=== PATIENT | female | born 1945 | race Two or more races ===

== ENCOUNTER 2019-02-20 09:16 | Inpatient (IN) | payer MEDICAID ==
[~2019-02-20] VITALS: Ht 165.1 cm; Wt 74.0 kg
[~2019-02-20 09:16] MED LIST: BENA5TAB5 PO; CALC-312 PO; GLIP-218 PO; METF-372 PO; PRAV20TA3 PO; SITA100T7 PO
[2019-02-20 09:56] LABS: Basophils # (auto) 0 uL; Basophils % (auto) 0.6 % (0.0-2.0); Eosinophils # (auto) 0.3 uL; Eosinophils % (auto) 4.4 % (0.0-7.0); Hematocrit 39.4 % (36.0-46.0); Hemoglobin 12.9 g/dL (12.2-16.2); Lymphocytes # (auto) 2.4 uL; Lymphocytes % (auto) 32.1 % (10.0-50.0); Mean Corpuscular Hemoglobin 32.3 pg (28.0-32.0); Mean Corpuscular Hgb Conc. 32.7 g/dL (32.0-36.0); Mean Corpuscular Volume 98.8 fL (80.0-100.0); Monocytes # (auto) 0.5 uL; Neutrophils # (auto) 4.2 uL; Neutrophils % (auto) 55.9 % (37.0-80.0); Platelet Count (auto) 175 10^3/uL (140-450); Red Blood Cells 3.99 10^6/uL (4.0-5.20); Red Cell Distribution Width 13.2 % (11.8-14.3); White Blood Cell 7.6 10^3/uL (4.4-10.8)
[2019-02-20 10:02] LABS: Anion Gap 22 (5-15); BUN/Creatinine Ratio 16.5; Blood Urea Nitrogen 20 mg/dL (7-18); Carbon Dioxide 10 mmol/L (21-32); Chloride 109 mmol/L (98-107); GFR African American 56 mL/min; GFR Non-African American 46 mL/min; Potassium 4.1 mmol/L (3.5-5.1); Sodium 141 mmol/L (136-145)
[2019-02-20 10:06] LABS: Alanine Aminotransferase 28 U/L (13-56); Alkaline Phosphatase 61 U/L (45-117); Aspartate Aminotransferase 20 U/L (15-37); Bilirubin, Total 0.5 mg/dL (0.2-1.0); Total Protein 7.9 g/dL (6.4-8.2)
[2019-02-20 11:25] LABS: Glucose 194 mg/dL (74-106)
[2019-02-20 11:28] LABS: Calcium 9.5 mg/dL (8.5-10.1)
[2019-02-20] MEDS ORDERED: ASPirin 81 mg TAB PO ONE (11:30)
[2019-02-20] MEDS ORDERED: NITROGLYCERIN 0.4 MG SL TAB SL ONE (11:30)
[2019-02-20] MEDS ORDERED: ACETAMINOPHEN 500 MG TAB PO PRN (13:45)
[2019-02-20] MEDS ORDERED: MORPHINE SULF INJ 2 MG/ML SYRINGE 1ML IV PRN ×2 (13:45)
[2019-02-20] MEDS ORDERED: HYDROcodone-ACET 5/325MG TAB PO PRN (13:45)
[2019-02-20] MEDS ORDERED: DEXTROSE (50%) 50ML SYRG IV PRN (13:45)
[2019-02-20] MEDS ORDERED: ONDANSETRON HCL 4 MG/2 ML VIAL IV PRN (13:45)
[2019-02-20] MEDS ORDERED: hydrALAZINE HCL 20 MG/ML VL IV PRN (13:45)
[2019-02-20] MEDS ORDERED: NITROGLYCERIN 0.4 MG SL TAB SL PRN (13:45)
[2019-02-20] MEDS: cefTRIAXone 1GM/50ML D5W 50 ML IV SCH (14:35)
[2019-02-20] MEDS: SODIUM CHLORIDE 0.9% 1,000 ML IV SCH (14:35)
[2019-02-20] MEDS: ACCU-CHEK COMFORT CURVE STRIP VI SCH ×2 (17:39→21:46)
[2019-02-20] MEDS: InsuLIN REG 1unit/0.01ml Soln (100units/ml) SC SCH ×2 (17:59→21:52)
[2019-02-20 18:16] LABS: Urine Bacteria MOD /hpf (None Seen); Urine Blood Negative /uL (Negative); Urine Mucus FEW (None Seen); Urine Specific Gravity 1.006 (1.001-1.035); Urine WBC 6 /hpf (0 - 5)
--- NOTE | 2019-02-20 19:20 | NUR ---
TELE ADMIT FROM ER RECEIVED PATIENT VIA GURNEY FROM ER. PATIENT RESTING COMFORTABLY IN BED WITH FAMILY MEMBER AT BEDSIDE. NO S/S OF DISTRESS OR SOB, NO PAIN NOTED OR REPORTED AT THIS TIME. PATIENT A/O X4, AMBULATORY. UPDATED PATIENT ON POC, VERBALIZED UNDERSTANDING. BED LOCKED IN LOW POSITION, CALL LIGHT WITHIN REACH, WILL CONTINUE TO MONITOR PATIENT Q1HR AND PRN.
[2019-02-20] MEDS: GABAPENTIN 100 MG CAP PO SCH (21:43)
[2019-02-20] MEDS: ATORVASTATIN 20 MG TAB PO SCH (21:44)
[2019-02-20] MEDS: METOPROLOL TARTRATE 25 MG TAB PO SCH (21:45)
[2019-02-20 22:21] VITALS: BP 155/59
[2019-02-21] VITALS (7 sets, daily range): BP systolic 114–151; BP diastolic 40–77
[2019-02-21] MEDS ORDERED: GLIP-116 PO (01:07)
[2019-02-21] MEDS ORDERED: CHOL20007 PO (01:07)
[2019-02-21] MEDS ORDERED: ALEN1TAB32 PO (01:07)
[2019-02-21] MEDS ORDERED: ACET500C8 PO (01:07)
[2019-02-21] MEDS: SODIUM CHLORIDE 0.9% 1,000 ML IV SCH ×2 (03:05→16:25)
--- NOTE | 2019-02-21 05:49 | NUR ---
IV insertion IV access obtained, via clean technique by inserting 22 gauge catheter at Right FA after 1 attempt. IV secured properly. No trauma to site. Patient tolerated procedure well
[2019-02-21 06:14] LABS: Basophils # (auto) 0.1 uL; Basophils % (auto) 0.8 % (0.0-2.0); Eosinophils # (auto) 0.4 uL; Eosinophils % (auto) 6.1 % (0.0-7.0); Hematocrit 37.3 % (36.0-46.0); Hemoglobin 12.4 g/dL (12.2-16.2); Lymphocytes # (auto) 2.5 uL; Lymphocytes % (auto) 34.7 % (10.0-50.0); Mean Corpuscular Hemoglobin 32.6 pg (28.0-32.0); Mean Corpuscular Hgb Conc. 33.2 g/dL (32.0-36.0); Mean Corpuscular Volume 98.4 fL (80.0-100.0); Monocytes # (auto) 0.5 uL; Monocytes % (auto) 7.7 % (0.0-12.0); Neutrophils # (auto) 3.6 uL; Neutrophils % (auto) 50.7 % (37.0-80.0); Platelet Count (auto) 169 10^3/uL (140-450); Red Blood Cells 3.79 10^6/uL (4.0-5.20); Red Cell Distribution Width 13.1 % (11.8-14.3); White Blood Cell 7.2 10^3/uL (4.4-10.8)
[2019-02-21 06:25] LABS: INR 1.03 (0.9-1.15); Partial Thromboplastin Time 25.6 sec (23.64-32.05)
[2019-02-21] MEDS: InsuLIN REG 1unit/0.01ml Soln (100units/ml) SC SCH ×4 (06:28→22:15)
[2019-02-21] MEDS: ACCU-CHEK COMFORT CURVE STRIP VI SCH ×4 (06:28→22:01)
[2019-02-21 06:34] LABS: BUN/Creatinine Ratio 19.2; Calcium 8.3 mg/dL (8.5-10.1); Potassium 4.1 mmol/L (3.5-5.1)
--- NOTE | 2019-02-21 07:25 | NUR ---
OPENING SHIFT NOTE ASSUMED CARE OF PATIENT FROM ELECTRONIC VIDEO GAMES SERVICER RN AVA. PATIENT IS AWAKE AND ALERT X4. PATIENT HAS NO S/S OF DISTRESS/SOB OR PAIN. INSTRUCTED PATIENT ON POC, PATIENT VERBALIZED UNDERSTANDING. BED IS IN LOWEST POSITION WITH SIDE RAILS RAISED X2, BED WHEELS LOCKED, LADD IS HANGING BELOW BLADDER AND IS DRAINING YELLOW URINE, AND CALL LIGHT IS WITHIN REACH. WILL CONTINUE TO MONITOR.
[2019-02-21] MEDS ORDERED: ADENOSINE 63 MG in GIVE UN-DILUTED 0 ML IV STA (08:27)
[2019-02-21] MEDS: cefTRIAXone 1GM/50ML D5W 50 ML IV SCH (09:35)
[2019-02-21] MEDS: METOPROLOL TARTRATE 25 MG TAB PO SCH ×2 (10:00→21:26)
[2019-02-21] MEDS: LISINOPRIL 10 MG TAB PO SCH (10:00)
--- NOTE | 2019-02-21 10:00 | NUR ---
PATIENT TAKEN DOWN FOR STRESS TEST VIA WHEELCHAIR. PATIENT HAS NO S/S OF DISTRESS/SOB OR PAIN AT THIS TIME.
--- NOTE | 2019-02-21 12:07 | NUR ---
SPOKE WITH DR. IRVIGN CULP MD ON PATIENT'S STATUS, INFORMED HIM PATIENT IS HAVING STRESS TEST DONE AT THIS TIME, MD IS AWARE. PER MD HE DOES NOT WANT THE PATIENT DISCHARGED DUE TO ABNORMAL ARTERIAL ULTRASOUND. HE WILL BE IN TOMORROW TO SEE PATIENT.
--- NOTE | 2019-02-21 12:11 | NUR ---
PATIENT BACK FROM STRESS LAB. PATIENT HAS NO S/S OF DISTRESS/SOB OR PAIN AT THIS TIME. WILL CONTINUE TO MONITOR.
--- NOTE | 2019-02-21 12:33 | NUR ---
MD YADAV AT BEDSIDE. UPDATED MD ON PATIENT'S STATUS. PER MD D/C WILBERTO AND ORDER CCHO DIET FOR PATIENT. WILL FOLLOW THROUGH WITH ORDERS.
[2019-02-21] MEDS: FAMOTIDINE 20 MG TAB PO SCH (12:56)
[2019-02-21] MEDS: GABAPENTIN 100 MG CAP PO SCH ×2 (12:56→22:01)
[2019-02-21] MEDS: ASPirin-EC 81 mg tab PO SCH (12:57)
--- NOTE | 2019-02-21 16:54 | NUR ---
Jimenez catheter dc'd Order to discontinue jimenez catheter. Jimenez dc'd with clean technique following deflation of the balloon. Patient tolerated well with no complaints of pain. Will continue to monitor. Signed: 02/21/19 at 1704 by SN JOÃO <Co-Signature Required> Co-Signed: 02/21/19 at 1704 by Nayely Salazar RN RN
--- NOTE | 2019-02-21 19:12 | NUR ---
CLOSING SHIFT NOTE ENDORSE CARE TO QUALITY CONTROL TECH RN KARLEY. INFORMED RN PATIENT'S HAS NOT VOIDED SINCE LADD WAS REMOVED AND MD DO WANTS LADD TO BE REINSERTED IF PATIENT HAS URINARY RETENTIONS. RN IS AWARE. PATIENT HAS NO S/S OF DISTRESS/SOB OR PAIN AT THIS TIME.
--- NOTE | 2019-02-21 19:31 | NUR ---
OPENING NOTES RECEIVED REPORT FROM DAY SHIFT NURSE. PT IS ALERT AND ORIENTATED X 4 WITH NO S/S OF DISTRESS NOR PAIN. NO S/S OF SOB. PT CLAIMS TO HAVE NO CHEST PAIN AT THIS MOMENT. FAMILY IS AT BEDSIDE. PT URINATED 200ML OF URINE. BED BRAKES ARE LOCKED AND BED IS IN LOWEST POSITION. SIDE RAILS ARE UP X 2 AND CALL LIGHT IS WITH IN REACH. BED ALARM IS ARMED AND HOB IS 30 DEGREES. WILL MONITOR Q 1 HR.
[2019-02-21] MEDS: ATORVASTATIN 20 MG TAB PO SCH (22:01)
[2019-02-22 05:00] VITALS: BP 113/59
[2019-02-22] MEDS: SODIUM CHLORIDE 0.9% 1,000 ML IV SCH ×2 (06:30→17:59)
[2019-02-22] MEDS: ACCU-CHEK COMFORT CURVE STRIP VI SCH ×4 (06:35→22:17)
[2019-02-22] MEDS: InsuLIN REG 1unit/0.01ml Soln (100units/ml) SC SCH ×4 (06:36→22:00)
--- NOTE | 2019-02-22 07:32 | NUR ---
CLOSING NOTES ENDORSED CARE TO DAY SHIFT NURSE SUSAN.
--- NOTE | 2019-02-22 08:00 | NUR ---
Opening Shift Note Assumed care of patient, awake and alert. No S/S of distress/SOB or pain. Instructed on POC and to call for assist PRN, will continue to monitor for changes Q1hr and PRN.
[2019-02-22 09:00] VITALS: BP 125/56
[2019-02-22] MEDS: GABAPENTIN 100 MG CAP PO SCH ×2 (09:43→22:17)
[2019-02-22] MEDS: cefTRIAXone 1GM/50ML D5W 50 ML IV SCH (09:43)
[2019-02-22] MEDS: LISINOPRIL 10 MG TAB PO SCH (09:45)
[2019-02-22] MEDS: FAMOTIDINE 20 MG TAB PO SCH (09:45)
[2019-02-22] MEDS: METOPROLOL TARTRATE 25 MG TAB PO SCH ×2 (09:45→22:17)
[2019-02-22] MEDS: ASPirin-EC 81 mg tab PO SCH (09:46)
[2019-02-22 13:00] VITALS: BP 153/74
--- NOTE | 2019-02-22 14:00 | NUR ---
IV removal IV noted to be infiltrated on left forearm and right forearm. IV DC'd with clean sterile technique, catheter fully intact. Pressure dressing applied to site. Patient tolerated well.
--- NOTE | 2019-02-22 16:00 | NUR ---
IV insertion IV access obtained, via clean sterile technique by inserting 20 gauge catheter at left antecubital after one attempt. IV secured properly. No trauma to site. Patient tolerated well.
[2019-02-22 17:00] VITALS: BP 128/73
--- NOTE | 2019-02-22 17:00 | NUR ---
Patient is for bilateral peripheral angiogram and possible intervention tomorrow 02/23/19 at 1300 to be performed by Dr. Sandoval. Consents to be signed by daughter Cindy, she will come tomorrow AM.
--- NOTE | 2019-02-22 19:21 | NUR ---
OPENING NOTES RECEIVED REPORT FROM DAY SHIFT NURSE. PT IS ALERT AND ORIENTATED X 4 WITH NO S/S OF DISTRESS NOR PAIN. NO S/S OF SOB. PT CLAIMS TO HAVE NO CHEST PAIN AT THIS MOMENT. PT WILL BE NPO AFTER MIDNIGHT. THIS WAS DISCUSSED WITH PT AND PT VERBALIZED UNDERSTANDING. BED BRAKES ARE LOCKED AND BED IS IN LOWEST POSITION. SIDE RAILS ARE UP X 2 AND CALL LIGHT IS WITH IN REACH. BED ALARM IS ARMED AND HOB IS 30 DEGREES. WILL MONITOR Q 1 HR.
[2019-02-22 20:00] VITALS: BP 125/56
[2019-02-22 21:30] VITALS: BP 144/91
[2019-02-22] MEDS: ATORVASTATIN 20 MG TAB PO SCH (22:17)
[2019-02-23] MEDS: SODIUM CHLORIDE 0.9% 1,000 ML IV SCH ×4 (02:35→21:41)
[2019-02-23 05:00] VITALS: BP 109/51
[2019-02-23] MEDS: InsuLIN REG 1unit/0.01ml Soln (100units/ml) SC SCH ×4 (06:25→21:42)
[2019-02-23] MEDS: ACCU-CHEK COMFORT CURVE STRIP VI SCH ×4 (06:25→21:42)
--- NOTE | 2019-02-23 07:28 | NUR ---
CLOSING NOTES ENDORSED CARE TO DAY SHIFT NURSESUSAN.
[2019-02-23] MEDS: cefTRIAXone 1GM/50ML D5W 50 ML IV SCH (08:43)
[2019-02-23 09:00] VITALS: BP 147/66
[2019-02-23] MEDS: GABAPENTIN 100 MG CAP PO SCH ×2 (10:00→21:42)
[2019-02-23] MEDS: METOPROLOL TARTRATE 25 MG TAB PO SCH ×2 (10:00→21:42)
[2019-02-23] MEDS: FAMOTIDINE 20 MG TAB PO SCH (10:00)
[2019-02-23] MEDS: ASPirin-EC 81 mg tab PO SCH ×2 (10:00→18:49)
--- NOTE | 2019-02-23 10:50 | NUR ---
Patient brought to Substation Maintenance Technician via bed for Bilateral peripheral angiogram and possible intervention to be performed by Dr. Sandoval. Gave reports to Blu NAGY.
[2019-02-23] MEDS ORDERED: IODIXANOL 320MG/ML 100ML BTL IV ONE (11:47)
[2019-02-23] MEDS ORDERED: LIDOCAINE 2%HCL (LOCAL ANESTH.) INJ 20ML MDV ONE (11:47)
[2019-02-23] MEDS ORDERED: fentaNYL CITRATE 100 MCG/2 ML VL ONE (12:01)
[2019-02-23] MEDS ORDERED: ANGIOMAX 250 MG VIAL IV ONE (12:01)
[2019-02-23] MEDS ORDERED: MIDAZOLAM HCL 1MG/1ML-2 ML VIAL ONE (12:02)
[2019-02-23] MEDS ORDERED: SODIUM CHL 0.9% 50 ML ONE (12:02)
[2019-02-23] MEDS ORDERED: CLOPIDOGREL BISULFATE 75 MG TAB ONE (13:01)
--- NOTE | 2019-02-23 14:05 | NUR ---
Received reports from Parole Officer RN, patient back to her room via bed, S/P bilateral peripheral angiogram performed by Dr. Sandoval. Patient is awake, oriented and not in respiratory distress. Maintained flat on bed for 1 more hour. Bed alarm on and side rails up x2. Will continue to monitor.
--- NOTE | 2019-02-23 14:39 | NUR ---
Nutrition Assessment Notes please see attached link for complete assessment Est. Needs BW [id number] kcal (23-25 kcal/kgBW), 71-78 gms pro (1.0-1.1 gms/kgBW). Will continue to monitor pertinent labs and reassess nutrient need prn Addendum: 02/23/19 at [address] Amended: Links added.
[2019-02-23 16:41] VITALS: BP 136/72
[2019-02-23] MEDS: LISINOPRIL 10 MG TAB PO SCH (18:49)
[2019-02-23] MEDS: ATORVASTATIN 20 MG TAB PO SCH (21:41)
[2019-02-23 22:00] VITALS: BP 130/66
[2019-02-24 05:00] VITALS: BP 99/52
[2019-02-24] MEDS: SODIUM CHLORIDE 0.9% 1,000 ML IV SCH ×3 (05:34→17:37)
[2019-02-24] MEDS: InsuLIN REG 1unit/0.01ml Soln (100units/ml) SC SCH ×4 (06:10→21:52)
[2019-02-24] MEDS: ACCU-CHEK COMFORT CURVE STRIP VI SCH ×4 (06:11→21:52)
[2019-02-24 06:20] LABS: Basophils # (auto) 0 uL; Basophils % (auto) 0.6 % (0.0-2.0); Eosinophils # (auto) 0.3 uL; Eosinophils % (auto) 4.1 % (0.0-7.0); Hematocrit 37.1 % (36.0-46.0); Hemoglobin 12.5 g/dL (12.2-16.2); Lymphocytes # (auto) 2.6 uL; Lymphocytes % (auto) 37.1 % (10.0-50.0); Mean Corpuscular Hemoglobin 33.3 pg (28.0-32.0); Mean Corpuscular Hgb Conc. 33.6 g/dL (32.0-36.0); Monocytes # (auto) 0.5 uL; Monocytes % (auto) 7.2 % (0.0-12.0); Neutrophils # (auto) 3.6 uL; Nucleated Red Blood Cells % 0.1 %; Platelet Count (auto) 165 10^3/uL (140-450); Red Blood Cells 3.75 10^6/uL (4.0-5.20); Red Cell Distribution Width 13.4 % (11.8-14.3)
[2019-02-24 06:35] LABS: Potassium 4.7 mmol/L (3.5-5.1)
[2019-02-24 06:42] LABS: BUN/Creatinine Ratio 22.8; Calcium 8.6 mg/dL (8.5-10.1)
--- NOTE | 2019-02-24 07:20 | NUR ---
Opening Shift Note Assumed care of patient, awake and alert, sitting up in bed talking on the phone. No S/S of distress/SOB, no pain noted or reported at this time. Respirations are even and unlabored. Updated on POC and instructed to call for assist as needed, pt. verbalized understanding. Bed locked in lowest position, side rails up x2, call light within reach. Will continue to monitor for changes Q1hr and PRN.
[2019-02-24 09:00] VITALS: BP 126/60
[2019-02-24] MEDS: cefTRIAXone 1GM/50ML D5W 50 ML IV SCH (09:15)
[2019-02-24] MEDS: METOPROLOL TARTRATE 25 MG TAB PO SCH ×2 (10:00→21:53)
[2019-02-24] MEDS: FAMOTIDINE 20 MG TAB PO SCH (10:31)
[2019-02-24] MEDS: ASPirin-EC 81 mg tab PO SCH (10:31)
[2019-02-24] MEDS: GABAPENTIN 100 MG CAP PO SCH ×2 (10:32→21:51)
[2019-02-24] MEDS: CLOPIDOGREL BISULFATE 75 MG TAB PO SCH (10:32)
[2019-02-24] MEDS: LISINOPRIL 10 MG TAB PO SCH (10:33)
[2019-02-24 13:00] VITALS: BP 127/67
[2019-02-24 13:11] LABS: Cholesterol 114 mg/dL (< 200); HDL Cholesterol 36 mg/dL (40-59); LDL Cholesterol 69 mg/dL (< 100); Triglycerides 90 mg/dL (< 150)
[2019-02-24] MEDS ORDERED: POLYETHYLENE GLYCOL 17 GM PWDR PO ONE (17:45)
[2019-02-24 17:51] VITALS: BP 142/73
--- NOTE | 2019-02-24 19:40 | NUR ---
Opening Shift Note Assumed care of patient, awake and alert, resting in bed. No S/S of distress or SOB, no pain noted or reported at this time. Respirations are even and unlabored. Updated pt. on POC and instructed to call for assistance as needed, Pt. verbalized understanding. Bed locked in lowest position, side rails up x2, call light within reach, sitter at bedside for safety.
[2019-02-24] MEDS: ATORVASTATIN 20 MG TAB PO SCH (21:51)
[2019-02-24 22:00] VITALS: BP 134/79
--- NOTE | 2019-02-24 23:00 | NUR ---
IV removal IV DC'd with clean sterile technique, catheter fully intact. Pressure dressing applied to site. Patient tolerated well.
--- NOTE | 2019-02-24 23:18 | NUR ---
IV insertion IV access obtained, via clean sterile technique by inserting 22 gauge catheter at right hand after 2 attempt. IV secured properly. No trauma to site. Patient tolerated well.
[2019-02-25] MEDS: SODIUM CHLORIDE 0.9% 1,000 ML IV SCH ×3 (00:33→13:01)
[2019-02-25 05:00] VITALS: BP 142/48
[2019-02-25] MEDS: ACCU-CHEK COMFORT CURVE STRIP VI SCH ×2 (06:15→11:34)
[2019-02-25] MEDS: InsuLIN REG 1unit/0.01ml Soln (100units/ml) SC SCH ×2 (06:15→11:34)
--- NOTE | 2019-02-25 07:30 | NUR ---
Opening Shift Note Assumed care of patient, awake and alert, sitting up eating breakfast. No S/S of distress/SOB, no pain noted or reported at this time. Respirations are even and unlabored. Updated on POC and instructed to call for assist as needed, pt. verbalized understanding. Bed locked in lowest position, side rails up x2, call light within reach. Will continue to monitor for changes Q1hr and PRN.
[2019-02-25 08:29] VITALS: BP 114/46
[2019-02-25] MEDS: FAMOTIDINE 20 MG TAB PO SCH (09:01)
[2019-02-25] MEDS: CLOPIDOGREL BISULFATE 75 MG TAB PO SCH (09:02)
[2019-02-25] MEDS: GABAPENTIN 100 MG CAP PO SCH (09:02)
[2019-02-25] MEDS: ASPirin-EC 81 mg tab PO SCH (09:02)
[2019-02-25] MEDS: cefTRIAXone 1GM/50ML D5W 50 ML IV SCH (09:03)
[2019-02-25] MEDS: METOPROLOL TARTRATE 25 MG TAB PO SCH (09:03)
[2019-02-25] MEDS: LISINOPRIL 10 MG TAB PO SCH (09:04)
[2019-02-25 12:47] VITALS: BP 143/68
[2019-02-25 14:37] VITALS: BP 143/68
--- NOTE | 2019-02-25 15:50 | NUR ---
Discharge instructions given as ordered. Encourage to follow up with PCP and Subsea Engineer as instructed. All questions and concerns addressed. Patient verbalized understanding. Medication reconciliation form completed and copy given to patient. IV removed with catheter intact, pressure dressing applied. Telemetry unit returned to [facility]. Patient taken to vehicle via wheelchair with all personal belongings, accompanied by staff and family member. No distress noted at time of departure.
== END 2019-02-25 15:50 | disposition home or self-care (01) | DRG 181 ==
LOC: ER 09:20 → TELE 09:21 → TELE-WESTW 19:30
PROVIDERS: ADMIT Nurse Practitioner Acute Care; ATTEND Internal Medicine Nephrology
PROC: 047K3ZZ Dilation of Right Femoral Artery, Percutaneous Approach (ICD-10-PCS; principal; 2019-02-23)
PROC: B41G1ZZ Fluoroscopy of Left Lower Extremity Arteries using Low Osmolar Contrast (ICD-10-PCS; 2019-02-23)
PROC: B41F1ZZ Fluoroscopy of Right Lower Extremity Arteries using Low Osmolar Contrast (ICD-10-PCS; 2019-02-23)
DX: E11.51 Type 2 diabetes mellitus with diabetic peripheral angiopathy without gangrene (principal); E11.22 Type 2 diabetes mellitus with diabetic chronic kidney disease; I24.9 Acute ischemic heart disease, unspecified; N18.3 Chronic kidney disease, stage 3 (moderate); R33.9 Retention of urine, unspecified; I12.9 Hypertensive chronic kidney disease with stage 1 through stage 4 chronic kidney disease, or unspecified chronic kidney disease; M81.0 Age-related osteoporosis without current pathological fracture; E78.5 Hyperlipidemia, unspecified; N13.2 Hydronephrosis with renal and ureteral calculous obstruction; E66.9 Obesity, unspecified; Z79.84 Long term (current) use of oral hypoglycemic drugs; Z83.3 Family history of diabetes mellitus; Z87.440 Personal history of urinary (tract) infections
CPT/HCPCS: 36415; 51702; 71045; 74176; 78452; 80048; 80053; 80061; 81001; 82962; 83036; 83605; 84484; 85025; 85610; 85730; 86141; 87086; 93005; 93017; 93306; 93926; 94761; 96361; 96365; 97116; 97530; 99152; G0378; J0153; J0696; J1815; J2250; J2405; Q9967

== ENCOUNTER 2022-04-19 20:43 | Emergency (ER) | payer MEDICAID ==
[~2022-04-19] VITALS: Ht 165.1 cm; Wt 67.0 kg
[~2022-04-19 20:43] MED LIST changes: +ACET500C8 PO; +ALEN70TA74 PO; -BENA5TAB5 PO; -CALC-312 PO; +CHOL20007 PO; -GLIP-218 PO; +GLIP10TA9 PO; -PRAV20TA3 PO; -SITA100T7 PO
[2022-04-19 21:43] VITALS: BP 140/52
== END 2022-04-20 03:32 | disposition left against medical advice (07) ==
LOC: ER 20:48
DX: M79.631 Pain in right forearm (principal); Z53.21 Procedure and treatment not carried out due to patient leaving prior to being seen by health care provider; W18.39XA Other fall on same level, initial encounter; Y93.89 Activity, other specified; Y92.89 Other specified places as the place of occurrence of the external cause; Y99.8 Other external cause status
CPT/HCPCS: 73100; 73120

== ENCOUNTER 2023-01-14 16:56 | Emergency (ER) | payer MEDICAID ==
[~2023-01-14] VITALS: Ht 152.4 cm; Wt 63.3 kg
[2023-01-14 18:48] VITALS: BP 167/65
[2023-01-14 20:05] LABS: Basophils # (auto) 0.1 10 ^3/uL (0-0.2); Basophils % (auto) 0.8 % (0.0-2.0); Eosinophils # (auto) 0.2 10 ^3/uL (0-0.8); Eosinophils % (auto) 2.2 % (0.0-7.0); Hematocrit 37.5 % (36.0-46.0); Hemoglobin 12.8 g/dL (12.2-16.2); Lymphocytes # (auto) 3.1 10 ^3/uL (0.4-5.4); Lymphocytes % (auto) 39.8 % (10.0-50.0); Mean Corpuscular Hemoglobin 32.9 pg (28.0-32.0); Mean Corpuscular Volume 96.5 fL (80.0-100.0); Monocytes # (auto) 0.7 10 ^3/uL (0-1.3); Monocytes % (auto) 8.9 % (0.0-12.0); Neutrophils # (auto) 3.7 10 ^3/uL (1.6-8.6); Neutrophils % (auto) 48.3 % (37.0-80.0); Nucleated Red Blood Cells % 0.1 %; Red Blood Cells 3.89 10^6/uL (4.0-5.20); Red Cell Distribution Width 12.8 % (11.8-14.3); White Blood Cell 7.7 10^3/uL (4.4-10.8)
[2023-01-14 20:31] LABS: Albumin 3.2 g/dL (3.4-5.0); BUN/Creatinine Ratio 18.9 (10.0-20.0); Calcium 9.3 mg/dL (8.5-10.1); Potassium 4.8 mmol/L (3.5-5.1)
[2023-01-14 20:33] LABS: Bilirubin, Total 0.2 mg/dL (0.2-1.0); Total Protein 8.2 g/dL (6.4-8.2)
[2023-01-14] MEDS ORDERED: CLINDAMYCIN HCL 150 MG CAP PO ONE (21:15)
[2023-01-14] MEDS ORDERED: CLIN300C70 PO (21:15)
== END 2023-01-14 21:24 | disposition home or self-care (01) ==
LOC: ER 16:56
DX: L03.116 Cellulitis of left lower limb (principal); E87.1 Hypo-osmolality and hyponatremia; E11.65 Type 2 diabetes mellitus with hyperglycemia; E78.5 Hyperlipidemia, unspecified; E11.22 Type 2 diabetes mellitus with diabetic chronic kidney disease; I12.9 Hypertensive chronic kidney disease with stage 1 through stage 4 chronic kidney disease, or unspecified chronic kidney disease; N18.9 Chronic kidney disease, unspecified
CPT/HCPCS: 36415; 80053; 85025

== ENCOUNTER 2024-08-22 14:51 | Inpatient (IN) | payer MEDICAID ==
[~2024-08-22] VITALS: Ht 157.5 cm; Wt 71.8 kg
[~2024-08-22 14:51] MED LIST changes: +CLIN1CAP70 PO
--- NOTE | 2024-08-22 15:33 | DVH ---
CHEST RADIOGRAPH Indication: ALOC Technique: Single frontal view of the chest was obtained COMPARISON: None FINDINGS: Lines and Tubes: None Lungs: Clear Pleura: No effusion. No pneumothorax. Cardiomediastinal contours: Unremarkable Bones: Unremarkable IMPRESSION: 1. No acute disease.
[2024-08-22 15:39] LABS: Basophils # (auto) 0 10 ^3/uL (0-0.2); Basophils % (auto) 0.2 % (0.0-2.0); Eosinophils # (auto) 0 10 ^3/uL (0-0.8); Hematocrit 37.4 % (36.0-46.0); Hemoglobin 12.4 g/dL (12.2-16.2); Lymphocytes # (auto) 0.9 10 ^3/uL (0.4-5.4); Lymphocytes % (auto) 9.6 % (10.0-50.0); Mean Corpuscular Hgb Conc. 33.1 g/dL (32.0-36.0); Mean Corpuscular Volume 96.9 fL (80.0-100.0); Monocytes # (auto) 0.2 10 ^3/uL (0-1.3); Monocytes % (auto) 1.9 % (0.0-12.0); Neutrophils % (auto) 88.3 % (37.0-80.0); Platelet Count (auto) 184 10^3/uL (140-450); Red Blood Cells 3.86 10^6/uL (4.0-5.20); Red Cell Distribution Width 13.1 % (11.8-14.3); White Blood Cell 9.1 10^3/uL (4.4-10.8)
--- NOTE | 2024-08-22 15:43 | DVH ---
Exam: CT HEAD WITHOUT CONTRAST History: ALOC Technique: [address] images through the posterior fossa and the supratentorial compart ment were acquired without contrast and imaged using soft tissue and bone algorithms. RADIATION DOSE: DLP 971.1 mGy.cm; CTDI vol 53.76 mGy. Comparison: None Findings: There is no evidence of an intracranial hemorrhage, acute large vessel infarct, mass effect, or midli ne shift. Marked calcification of the carotid siphons. The calvarium, orbits, paranasal sinuses, sella, middle ears, and mastoids are unremarkable. The superficial soft tissues are within normal limits. Impression: 1. No acute intracranial abnormality.
--- NOTE | 2024-08-22 15:51 | ED.PDOC ---
Altered Mental Status HPI Comments 78Y F with PMHx DM, HTN, HLD, DVT, and CKD presents to ED for chief complaint ALOC x1hr. Per daughter, pt was last seen normal 1hour ago where pt was A&Ox4 and verbal. Upon ED arrival, pt only opens eyes to verbal stimuli and is experiencing chills, bilateral leg pain, nausea, vomiting, and weakness. Per daughter, BP was elevated at home yesterday. No other history provided. No other symptoms reported. Chief Complaint: ALOC Time Seen by MD: 15:29 Primary Care Provider: ERIKA PENALOZA Reviewed Notes: Nurses Notes, Medications, Allergies Allergies: Coded Allergies: NO KNOWN ALLERGIES (Unverified , 07/28/13) Home Meds Active Scripts Clindamycin Hcl (Clindamycin Hcl) 300 Mg Cap, 1 CAP PO TID for 10 Days, #21 CAP 0 Refills Prov:TIAGO FLOOD 01/14/23 Reported Medications Cholecalciferol (VITAMIN D3) 2,000 Unit Tab, 1 TAB PO DAILY, #30 TAB 5 Refills 02/21/19 Alendronate Sodium (Alendronate Sodium) 70 Mg Tab, 1 TAB PO QWEEKLY, #4 TAB 3 Refills 02/21/19 Acetaminophen (Mapap) 500 Mg Cap, 500 MG PO Q6HR, CAP 02/21/19 Glipizide (Glipizide) 10 Mg Tab, 1 TAB PO DAILY, #60 TAB 5 Refills 02/21/19 Metformin Hydrochloride (Metformin Hcl) 1,000 Mg Tab, 1000 MG PO, TAB 07/28/13 Information Source: Patient, Relative (Child) Mode of Arrival: Wheelchair Severity: Moderate Timing: Hours Duration: Since onset Quality: Decreased Alertness, Change in Behavior, Not Eating Recent: Nausea, Vomiting, Other History of: Diabetes Associated Signs and Symptoms: Other Past Medical History PAST MEDICAL HISTORY: CKF, DM, High Lipids, HTN Surgical History: Denies all surgeries BOX CLOSING MACHINE OPERATOR History: No Pertinent BOX CLOSING MACHINE OPERATOR History Family History Family History: Reviewed,noncontributory to illness Social History Smoker: Non-Smoker Alcohol: Denies ETOH Use Drugs: Denies Drug Use Lives In: Home Constitutional: reports: chills, weakness; denies: diaphoresis, fatigue, fever, malaise, sweats, others EENTM: denies: blurred vision, double vision, ear bleeding, ear discharge, ear drainage, ear pain, ear ringing, eye pain, eye redness, hearing loss, mouth pain, mouth swelling, nasal discharge, nose bleeding, nose congestion, nose pain, photophobia, tearing, throat pain, throat swelling, voice changes, others Respiratory: denies: cough, hemoptysis, orthopnea, SOB at rest, shortness of breath, SOB with excertion, stridor, wheezing, others Cardiovascular: denies: chest pain, dizzy spells, diaphoresis, Dyspnea on exertion, edema, irregular heart beat, left arm pain, lightheadedness, palpitations, PND, syncope, others Gastrointestinal: reports: nausea, vomiting; denies: abdomen distended, abdominal pain, blood streaked bowels, constipated, diarrhea, dysphagia, difficulty swallowing, hematemesis, melena, poor appetite, poor fluid intake, rectal bleeding, rectal pain, others Genitourinary: denies: abnormal vagina bleeding, burning, dyspareunia, dysuria, flank pain, frequency, hematuria, incontinence, pain, , vagina discharge, urgency, others Neurological: denies: dizziness, fainting, headache, left sided numbness, left sided weakness, numbness, paresthesia, pre-existing deficit, right sided numbness, right sided weakness, seizure, speech problems, tingling, tremors, weakness, others Musculoskeletal: reports: others (BLE pain); denies: back pain, gout, joint pain, joint swelling, muscle pain, muscle stiffness, neck pain Integumetry: denies: bruises, change in color, change in hair/nails, dryness, laceration, lesions, lumps, rash, wounds, others Allergic/Immunocompromised: denies: Difficulty Healing, Frequent Infections, Hives, Itching, others Hematologic/Lymphatic: denies: anemia, blood clots, easy bleeding, easy bruising, swollen glands, others Endocrine: denies: excessive hunger, excessive sweating, excessive thirst, excessive urination, flushing, intolerance to cold, intolerance to heat, unexplained weight gain, unexplained weight loss, others Psychiatric: denies: anxiety, bipolar disorder, depression, hopeless, panic disorder, schizophrenia, sleepless, suicidal, others All Other Systems: Reviewed and Negative Physical Exam General Appearance: No Apparent Distress, Normal, Other (Patient while in the emergency department of [facility] vital signs patient had a moment of lethargic but then snapped out of it) HEENT: Normal ENT Inspection, PERRL/EOMI, Pharynx Normal, TMs Normal, Other (No facial asymmetry) Neck: Full Range of Motion, Non-Tender, Normal, Normal Inspection Respiratory: Chest Non-Tender, Lungs Clear, No Accessory Muscle Use, No Respiratory Distress, Normal Breath Sounds Cardiovascular: No Edema, No JVD, No Murmur, No Gallop, Normal Peripheral Pulses, Regular Rate/Rhythm Breast Exam: Deferred Gastrointestinal: No Organomegaly, Non Tender, No Pulsatile Mass, Normal Bowel Sounds, Soft Genitalia: Deferred Pelvic: Deferred Rectal: Deferred Extremities: No calf tenderness, Normal capillary refill, Normal inspection, Normal range of motion, Non-tender, No pedal edema Musculoskeletal : Apperance: Normal Neurologic: Alert, ferryboat operator helper II-XII nml as Tested, No Motor Deficits, Normal Affect, Normal Mood, No Sensory Deficits Cerebellar Function: Normal Reflexes: Normal Skin: Dry, Normal Color, Warm Peripheral Pulses: 1+ carotid (R), 1+ carotid (L) Lymphatic: No Adenopathy EKG EKG : Pulse Rate (adult): 116 [place]: Normal Cardiac Rhythm: ST ST: Ant, Lat, Ischemia Was a procedure done? Was a procedure done?: No Differential Diagnosis (ALOC) Differential Diagnosis: Dehydration, Hypoglycemia, DKA, Sepsis, CVA, Mass [place], Heart Failure, Renal Failure X-Ray, Labs, Meds, VS Vital Signs Date Time Temp Pulse Resp B/P (MAP) Pulse Ox O2 Delivery O2 Flow Rate FiO2 08/22/24 17:53 97.8 08/22/24 17:04 116 08/22/24 16:42 102.4 08/22/24 16:19 102.4 92 16 109/49 (69) 93 102.4 08/22/24 16:00 93 19 97 Nasal Cannula* 2 28 08/22/24 15:12 116 08/22/24 15:00 101.9 108 18 127/54 (78) 95 Lab Test 08/22/24 17:20 08/22/24 17:13 08/22/24 16:30 08/22/24 15:18 Range/Units Troponin I High Sensitivity 34 21 </=34 ng/L Plasma/Serum Blood Alcohol Pending Lactic Acid Level 1.8 3.5 *H 0.4-2.0 mmol/L Test 08/22/24 15:10 08/22/24 14:58 Range/Units White Blood Count 9.1 4.4-10.8 10^3/uL Red Blood Count 3.86 L 4.0-5.20 10^6/uL Hemoglobin 12.4 12.2-16.2 g/dL Hematocrit 37.4 36.0-46.0 % Mean Corpuscular Volume 96.9 80.0-100.0 fL Mean Corpuscular Hemoglobin 32.0 28.0-32.0 pg Mean Corpuscular Hemoglobin Concent 33.1 32.0-36.0 g/dL Red Cell Distribution Width 13.1 11.8-14.3 % Platelet Count 184 140-450 10^3/uL Mean Platelet Volume 9.8 6.9-10.8 fL Neutrophils (%) (Auto) 88.3 H 37.0-80.0 % Lymphocytes (%) (Auto) 9.6 L 10.0-50.0 % Monocytes (%) (Auto) 1.9 0.0-12.0 % Eosinophils (%) (Auto) 0.0 0.0-7.0 % Basophils (%) (Auto) 0.2 0.0-2.0 % Neutrophils # (Auto) 8.0 1.6-8.6 10 ^3/uL Lymphocytes # (Auto) 0.9 0.4-5.4 10 ^3/uL Monocytes # (Auto) 0.2 0-1.3 10 ^3/uL Eosinophils # (Auto) 0 0-0.8 10 ^3/uL Basophils # (Auto) 0 0-0.2 10 ^3/uL Nucleated Red Blood Cells 0.0 % Sodium Level 131 L 136-145 mmol/L Potassium Level 4.7 3.5-5.1 mmol/L Chloride Level 102 98-107 mmol/L Carbon Dioxide Level 19 L 20-31 mmol/L Anion Gap 10 5-15 Blood Urea Nitrogen 23 9-23 mg/dL Creatinine 1.05 H 0.550-1.02 mg/dL Glomerular Filtration Rate Calc 54 >90 mL/min BUN/Creatinine Ratio 21.9 H 10.0-20.0 Serum Glucose 315 H 74-106 mg/dL Calcium Level 10.0 8.7-10.4 mg/dL Total Bilirubin 0.7 0.2-1.0 mg/dL Aspartate Amino Transferase (AST) 34 13-40 U/L Alanine Aminotransferase (ALT) 27 7-40 U/L Alkaline Phosphatase 109 46-116 U/L Troponin I High Sensitivity 4 </=34 ng/L Total Protein 6.3 5.7-8.2 g/dL Albumin 3.9 3.2-4.8 g/dL POC Glucose 287 H 70-106 mg/dl Current Medications Medications (Trade) Dose Ordered Sig/Keny Route Start Time Stop Time Status Last Admin Acetaminophen (Tylenol Suppository) [address] 08/22/24 15:15 08/22/24 15:16 DC 08/22/24 16:42 Sodium Chloride 1,000 ml @ 1,000 mls/hr Q1H ONCE IVB 08/22/24 16:30 08/22/24 17:29 DC 08/22/24 16:42 Ceftriaxone Sodium 50 ml @ 100 mls/hr ONCE ONCE IV 08/22/24 16:30 08/22/24 16:59 DC 08/22/24 16:42 [place] [id number] Ph: [phone] DIAGNOSTIC IMAGING Diagnostic Imaging Report : [id number] Signed PATIENT: TJ SCHREIBER ACCT: [id number] UNIT: [id number] : 1945 LOC: ER ROOM / BED: / AGE / SEX: 78 / F ADM STATUS: REG ER SERVICE 1505 ORDERING PHYSICIAN: MARGARITA TAYLOR MD PROCEDURE(s): CXRP - CHEST PORTABLE REASON: ALOC ORDER NUMBER(s): [id number], ACCESSION NUMBER(s): [id number] CHEST RADIOGRAPH Indication: ALOC Technique: Single frontal view of the chest was obtained COMPARISON: None FINDINGS: Lines and Tubes: None Lungs: Clear Pleura: No effusion. No pneumothorax. Cardiomediastinal contours: Unremarkable Bones: Unremarkable IMPRESSION: 1. No acute disease. ATED BY: ARTURO HARPER MD DICTATED DATE/TIME: 08/22/24 1531 SIGNED BY: ARTURO HARPER MD SIGNED DATE/TIME: 08/22/24 153 CC: [place] [address] Ph: [phone] DIAGNOSTIC IMAGING Diagnostic Imaging Report : [id number] Signed PATIENT: TJ SCHREIBER ACCT: [id number] UNIT: [id number] : 1945 LOC: ER ROOM / BED: / AGE / SEX: 78 / F ADM STATUS: REG ER SERVICE 1505 ORDERING PHYSICIAN: MARGARITA TAYLOR MD PROCEDURE(s): HWOCT - HEAD WITHOUT CONTRAST REASON: ALOC ORDER NUMBER(s): [id number], ACCESSION NUMBER(s): [id number] Exam: CT HEAD WITHOUT CONTRAST History: ALOC Technique: [address] images through the posterior fossa and the supratentorial compartment were acquired without contrast and imaged using soft tissue and bone algorithms. RADIATION DOSE: DLP 971.1 mGy.cm; CTDI vol 53.76 mGy. Comparison: None Findings: There is no evidence of an intracranial hemorrhage, acute large vessel infarct, mass effect, or midline shift. Marked calcification of the carotid siphons. The calvarium, orbits, paranasal sinuses, sella, middle ears, and mastoids are unremarkable. The superficial soft tissues are within normal limits. Impression: 1. No acute intracranial abnormality. ATED BY: MARA CAMARGO DO DICTATED DATE/TIME: 08/22/24 154 SIGNED BY: MARA CAMARGO DO SIGNED DATE/TIME: 08/22/24 154 CC: X-Ray, Labs, Meds, VS Comment Course in the emergency department eventful patient came in because of an altered level of conscious sudden onset nausea and vomiting she is 78 years old she has history of hypertension diabetes osteoporosis and DVTs Blood pressure 127 over 54 Blood sugar 287 The chest x-ray is normal EKG shows sinus tachycardia at 1:16 a.m. with ischemic changes in the anterolateral leads CBC 9100 with 88.3 leukocyte and normal H&H CMP normal except for sugar of 315 GFR of 54 Lactic acid elevated at 3.5 Troponin at four Urine pending Patient will be admitted for further care Dr. Santiago we will follow the urine Time of 1ST Reevaluation: 15:59 Reevaluation 1ST: Unchanged Time of 2ND Reevaluation: 17:02 Reevaluation 2ND: Improved Patient Education/Counseling: Diagnosis, Treatment, Prognosis Family Education/Counseling: Diagnosis, Treatment, Prognosis, No Family Present Departure 1 Departure Time of Disposition: 18:13 Impression: Primary Impression: Altered mental status Qualified Codes: R40.0 - Somnolence Additional Impressions: Uncontrolled diabetes mellitus Qualified Codes: E11.65 - Type 2 diabetes mellitus with hyperglycemia Diabetic nephropathy Qualified Codes: E11.21 - Type 2 diabetes mellitus with diabetic nephropathy Sepsis Qualified Codes: A41.9 - Sepsis, unspecified organism Disposition: 09 ADMITTED INPATIENT Admit to: [facility] Condition: Fair Critical Care Note Critical Care Time?: No Stability Stability form required: Yes Unstable for transfer: Telemetry monitoring (Telemetry monitoring required), Requires medication (Requires Med for stabilization) Heart Score Heart Score: Heart Score Response (Comments) Value History Slightly Suspicious 0 EKG Repolarization Disturb 1 Age >65 2 Risk Factors 1 or 2 risk factors 1 Troponin Normal limit 0 Total 4 I personally scribed for MARGARITA TAYLOR MD ([email or web address]) on 08/22/24 at 15:51. Electronically submitted by Hina Navarro ([email or web address]). MARGARITA TAYLOR MD Aug 22, 2024 15:51
[2024-08-22 15:57] LABS: Alanine Aminotransferase 27 U/L (7-40); Albumin 3.9 g/dL (3.2-4.8); Alkaline Phosphatase 109 U/L (46-116); Anion Gap 10 (5-15); Aspartate Aminotransferase 34 U/L (13-40); BUN/Creatinine Ratio 21.9 (10.0-20.0); Bilirubin, Total 0.7 mg/dL (0.2-1.0); Blood Urea Nitrogen 23 mg/dL (9-23); Chloride 102 mmol/L (98-107); Potassium 4.7 mmol/L (3.5-5.1); Total Protein 6.3 g/dL (5.7-8.2)
[2024-08-22 16:00] VITALS: PULSE 93; RESP 19; O2SAT 97
[2024-08-22 16:07] LABS: Sodium 131 mmol/L (136-145)
[2024-08-22 16:08] LABS: Carbon Dioxide 19 mmol/L (20-31); Glucose 315 mg/dL (74-106)
[2024-08-22 16:10] LABS: Lactic Acid w/Reflex 3.5 mmol/L (0.4-2.0)
[2024-08-22] MEDS: SODIUM CHLORIDE 0.9% 1,000 ML IVB ONE (16:42)
[2024-08-22] MEDS: cefTRIAXone 1GM/50ML D5W 50 ML IV ONE (16:42)
[2024-08-22] MEDS: ACETAMINOPHEN 650 MG RECT SUPP PR ONE (16:42)
[2024-08-22 19:30] VITALS: PULSE 87; RESP 16; O2SAT 95
--- NOTE | 2024-08-22 20:52 | DVHHPRES ---
History of Present Illness Resident Creating Document: STACI HAILE RESIDENT History of Present Illness This is a 78-year-old female with past medical history of hypertension, type 2 diabetes mellitus, hyperlipidemia presented to the ED with a chief complaint of bilateral leg pain, cold and chills and intermittent confusion for 2 days prior to this admission. Patient is Occitan-speaking and according to the daughter she mentioned bilateral leg pains started yesterday which is associated with cold and chills and also noticed intermittent confusion when she was not able to recognized any familiar faces. The patient denies any fever, shortness of breath, cough, dysuria, hematuria , sick contact or any recent traveling. On admission patient has elevated temperature, tachycardia and lactic acid was high. PCP: Dr. Jaimes Past Medical History Hypertension, type 2 diabetes mellitus, hyperlipidemia Past Surgical History None Family History None Past Social History Lives with Family Nonsmoker, nonalcoholic and never tried any drugs Review of Systems Constitutional: Yes: Chills, Malaise; No: Fever, Sweats, Weakness, Other Eyes: No: Pain, Vision change, Conjunctivae inflammation, Eyelid inflammation, Other, Redness ENT: No: Ear pain, Ear discharge, Nose pain, Nose discharge, Nose congestion, Mouth pain, Mouth swelling, Throat pain, Throat swelling, Other Respiratory: No: Cough, Dry, Shortness of breath, SOB with excertion, Wheezing, Hemoptysis, Pleuritic Pain, Sputum, Wheezing, Other Cardiovascular: No: Chest Pain, Palpitations, Orthopnea, Paroxysmal Noc. Dyspnea, Edema, Lt Headedness, Other Gastrointestinal: No: Nausea, Vomiting, Abdominal Pain, Diarrhea, Constipation, Melena, Hematochezia, Other Genitourinary: No Dysuria, No Frequency, No Incontinence, No Hematuria, No Retention, No Other Musculoskeletal: leg pain; No: other, neck pain, shoulder pain, arm pain, back pain, hand pain, foot pain Skin: No: Rash, Lesions, Jaundice, Bruising, Other Neurological: No: Weakness, Numbness, Incoordination, Change in speech, Confusion, Seizures, Other Allergies: Coded Allergies: NO KNOWN ALLERGIES (Unverified , 07/28/13) Exam Vital Signs Vital Signs Date Time Temp Pulse Resp B/P (MAP) Pulse Ox O2 Delivery O2 Flow Rate FiO2 08/22/24 19:30 98.8 87 16 139/88 (105) 95 98.8 08/22/24 19:30 Room Air* 0 21 Exam Physical examination: General Appearance: Alert, Oriented X3, Cooperative, mild distress, 3L o2 in nasal canula HEENT: Atraumatic, PERRLA, EOMI, Mucous membrane moist/pink Respiratory: Bilateral wheezing and crackles. Cardiovascular: Regular rate, Normal S1, Normal S2, No murmurs, no chest wall tenderness Abdominal: Normal bowel sounds, Soft, No tenderness, No hepatospenomegaly, No masses Extremities: No clubbing, No cyanosis, No edema, Normal pulses. Skin: No rashes, No breakdown, No significant lesion Neuro: Normal speech, Strength at 5/5 X4 ext, Normal tone, Sensation intact, grossly intact cranial nerves. Psych/Mental Status: Mental status NL, Mood NL Labs/Xrays Labs Test 08/22/24 17:20 08/22/24 17:13 08/22/24 15:10 08/22/24 14:58 Range/Units Troponin I High Sensitivity 34 </=34 ng/L Plasma/Serum Blood Alcohol < 3.0 <10 mg/dL Lactic Acid Level 1.8 0.4-2.0 mmol/L White Blood Count 9.1 4.4-10.8 10^3/uL Red Blood Count 3.86 L 4.0-5.20 10^6/uL Hemoglobin 12.4 12.2-16.2 g/dL Hematocrit 37.4 36.0-46.0 % Mean Corpuscular Volume 96.9 80.0-100.0 fL Mean Corpuscular Hemoglobin 32.0 28.0-32.0 pg Mean Corpuscular Hemoglobin Concent 33.1 32.0-36.0 g/dL Red Cell Distribution Width 13.1 11.8-14.3 % Platelet Count 184 140-450 10^3/uL Mean Platelet Volume 9.8 6.9-10.8 fL Neutrophils (%) (Auto) 88.3 H 37.0-80.0 % Lymphocytes (%) (Auto) 9.6 L 10.0-50.0 % Monocytes (%) (Auto) 1.9 0.0-12.0 % Eosinophils (%) (Auto) 0.0 0.0-7.0 % Basophils (%) (Auto) 0.2 0.0-2.0 % Neutrophils # (Auto) 8.0 1.6-8.6 10 ^3/uL Lymphocytes # (Auto) 0.9 0.4-5.4 10 ^3/uL Monocytes # (Auto) 0.2 0-1.3 10 ^3/uL Eosinophils # (Auto) 0 0-0.8 10 ^3/uL Basophils # (Auto) 0 0-0.2 10 ^3/uL Nucleated Red Blood Cells 0.0 % Sodium Level 131 L 136-145 mmol/L Potassium Level 4.7 3.5-5.1 mmol/L Chloride Level 102 98-107 mmol/L Carbon Dioxide Level 19 L 20-31 mmol/L Anion Gap 10 5-15 Blood Urea Nitrogen 23 9-23 mg/dL Creatinine 1.05 H 0.550-1.02 mg/dL Glomerular Filtration Rate Calc 54 >90 mL/min BUN/Creatinine Ratio 21.9 H 10.0-20.0 Serum Glucose 315 H 74-106 mg/dL Calcium Level 10.0 8.7-10.4 mg/dL Total Bilirubin 0.7 0.2-1.0 mg/dL Aspartate Amino Transferase (AST) 34 13-40 U/L Alanine Aminotransferase (ALT) 27 7-40 U/L Alkaline Phosphatase 109 46-116 U/L Total Protein 6.3 5.7-8.2 g/dL Albumin 3.9 3.2-4.8 g/dL POC Glucose 287 H 70-106 mg/dl Assessment/Plan Assessment/Plan Assessment and plan: # Sepsis likely due to UTI - On admission patient has elevated temperature, tachycardia and lactic acidosis - Patient was given 1L NS IV bolus - IV Normal saline at 100 mL/hour - Blood culture preliminary report demonstrated gram negative rods. - IV ceftriaxone 1 gm daily. # Altered mental status due to acute metabolic/toxic encephalopathy - CT head without contrast revealed no acute intracranial abnormality - Ordered U/A, UDS, ammonia # Acute hypoxic respiratory failure,rule out CHF - Chest xray revealed possible pulmonary vascular congestion - BNP is normal - Hold Lasix due to hypotension - Ordered echo. # Hyperglycemia with normal anion gap, ruled out DKA (HbA1C 11.2) # Pseudohyponatremia due to hyperglycemia - Corrected sodium is 134 - [id number] units at q.a.m. and moderate sliding scale of insulin. # NSTEMI type 2 secondary to above - EKG is unremarkable - Troponin trends are 21>34>63 - Ordered echo # PUD prophylaxis - Pepcid 20 mg p.o. daily # DVT prophylaxis - Lovenox 40 mg sc daily Goal of care discussed with the patient for more than 20 minutes full code Plan discussed with Dr. Chavez Plan discussed with: Patient, Other My Orders Orders - STACI HAILE Procedure Category Date Status Time Admit ADMIT 08/22/24 Verified 20:51 Date of Service: Aug 22, 2024 Billing Provider: VALE CHAVEZ MD Common Visit Codes: [id number] INP/OBS CARE (HIGH) Secondary Visit Codes: [id number] CARE PLAN 30 MINUTES STACI HAILE Aug 22, 2024 20:52 VALE CHAVEZ MD Aug 23, 2024 17:13
[2024-08-22] MEDS: SODIUM CHLORIDE 0.9% 1,000 ML IV SCH (21:08)
[2024-08-22 21:49] LABS: Rapid Influenza A Negative (Negative); Rapid Influenza B Negative (Negative)
[2024-08-22 21:50] LABS: COVID19 ANTIGEN SOFIA FIA NEGATIVE (NEGATIVE)
[2024-08-22 22:17] VITALS: BP 138/64; PULSE 112; RESP 20; TEMP 99.2; O2SAT 92
[2024-08-22] MEDS ORDERED: DEXTROSE (50%) 50ML SYRG IV PRN (22:30)
[2024-08-23] VITALS (9 sets, daily range): BP systolic 85–147; BP diastolic 33–54; PULSE 11–72; RESP 15–20; TEMP 97.8–99.2; O2SAT 65–100
[2024-08-23] MEDS: SODIUM CHLORIDE 0.9% 500 ML IV ONE (01:00)
[2024-08-23] MEDS: SODIUM CHLORIDE 0.9% 1,000 ML IV SCH ×2 (03:23→15:56)
[2024-08-23 03:59] LABS: Urine Bacteria FEW /hpf (None Seen); Urine Blood 1+ /uL (Negative); Urine Clarity Turbid (Clear); Urine Color Light-Yellow (Yellow); Urine Protein, UAD TRACE (Negative); Urine Specific Gravity 1.008 (1.001-1.035); Urine Squamous Epithelial Cell None Seen /hpf (<5); Urine Urobilinogen Normal (Negative); Urine WBC 94 /hpf (0 - 5); Urine pH 5.5 (5.0-9.0)
[2024-08-23] MEDS: InsuLIN REG 1unit/0.01ml Soln (100units/ml) SC SCH ×2 (06:47→21:44)
[2024-08-23] MEDS: INSULIN LANTUS (GLARGINE) 1 /0.01ml (100units/ml) SC SCH (06:48)
[2024-08-23] MEDS: ACCU-CHEK COMFORT CURVE STRIP VI SCH (06:49)
[2024-08-23] MEDS: cefTRIAXone 1GM/50ML D5W 50 ML IV SCH (08:56)
[2024-08-23] MEDS: ENOXAPARIN SOD 40 MG/0.4 ML SYRINGE SC SCH (08:58)
[2024-08-23] MEDS: ASPirin-EC 81 mg tab PO SCH (08:58)
[2024-08-23] MEDS: FAMOTIDINE 20 MG TAB PO SCH (08:58)
[2024-08-23 13:04] LABS: Amphetamine Screen, Urine Neg (NEGATIVE); Barbiturate Scree,Urine Neg (NEGATIVE); Benzodiazephine Screen, Urine Neg (NEGATIVE); Cannabinoid Screen, Urine Neg (NEGATIVE); Cocaine Screen, Urine Neg (NEGATIVE); Opiate Scree,Urine Neg (NEGATIVE); Phencyclidine Screen, Urine Neg (NEGATIVE)
[2024-08-23 16:31] LABS: Sodium 137 mmol/L (136-145)
[2024-08-23 16:32] LABS: Anion Gap 6 (5-15); Carbon Dioxide 21 mmol/L (20-31)
[2024-08-23 16:33] LABS: Calcium 8.9 mg/dL (8.7-10.4)
[2024-08-23 16:37] LABS: Blood Urea Nitrogen 21 mg/dL (9-23)
[2024-08-23 17:01] LABS: Chloride 110 mmol/L (98-107); Glucose 243 mg/dL (74-106)
--- NOTE | 2024-08-23 18:46 | DVHPN2 ---
Subjective FEELS BETTER Reviewed: Care Plan, H&P, Labs, Medications, Previous Orders, Radiology Changes from previous H/P or p: No Changes Objective Vitals Vital Signs Date Time Temp Pulse Resp B/P (MAP) Pulse Ox O2 Delivery O2 Flow Rate FiO2 08/23/24 17:00 97.9 63 17 103/45 (64) 100 97.9 08/23/24 08:00 Nasal Cannula* 2 28 Intake/Output Intake and Output 08/23/24 07:00 Intake Total 200 ml Output Total 800 ml Balance -600 ml Intake Oral 200 ml Output Urine Total 800 ml General Appearance: Alert, Cooperative, No acute distress HEENT: Atraumatic Lungs: Clear to auscultation Cardiovascular: Regular rate Extremities: No edema Medications Current Medications Medications Dose Ordered Sig/Keny Route Start Time Stop Time Status Last Admin Dose Admin Insulin Glargine 15 units QAM SC 08/23/24 07:00 08/23/24 06:48 15 UNITS Diagnostic Test (Pha) 1 strip ACHS 08/23/24 07:00 08/23/24 18:05 1 STRIP Insulin Human Regular HS SC 08/23/24 22:00 Insulin Human Regular AC SC 08/23/24 07:00 08/23/24 16:58 6 UNITS Dextrose 50 ml UD PRN IV 08/22/24 22:30 Aspirin 81 mg DAILY PO 08/23/24 10:00 08/23/24 08:58 81 MG Atorvastatin Calcium 40 mg HS PO 08/23/24 22:00 Famotidine 20 mg DAILY PO 08/23/24 10:00 08/23/24 08:58 20 MG Enoxaparin Sodium 40 mg DAILY SC 08/23/24 10:00 08/23/24 08:58 40 MG Ceftriaxone Sodium 50 ml @ 100 mls/hr DAILY@09 IV 08/23/24 09:00 08/23/24 08:56 100 MLS/HR Sodium Chloride 1,000 ml @ 125 mls/hr Q8H IV 08/23/24 14:00 08/23/24 15:56 125 MLS/HR Laboratory Results Laboratory Tests 08/22/24 15:10 08/23/24 15:56 Chemistry Test 08/23/24 15:56 Calcium Level 8.9 mg/dL (8.7-10.4) Urinalysis Test 08/23/24 03:20 Urine Color Light-yellow (Yellow) Urine Clarity Turbid (Clear) H Urine pH 5.5 (5.0-9.0) Urine Specific [place] 1.008 (1.001-1.035) Urine Protein Trace (Negative) H Urine Ketones Negative (Negative) Urine Blood 1+ /uL (Negative) H Urine Nitrite 2+ (Negative) H Urine Bilirubin Negative (Negative) Urine Urobilinogen Normal mg/dL (Negative) Urine Leukocyte Esterase 3+ /uL (Negative) Urine RBC 1 /hpf (0 - 4) Urine WBC 94 /hpf (0 - 5) Urine Squamous Epithelial Cells None seen /hpf (<5) Urine Bacteria Few /hpf (None Seen) H Urine Glucose 3+ mg/dL (Normal) H Microbiology Microbiology Date/Time Source Procedure Growth Status 08/22/24 15:25 Blood Blood Culture - Preliminary Resulted Assessment/Plan Assessment/Plan ALOC UTI WITH SEPSI/ GNR BACTEREMIA SEPTIC ENCEPHALOPATHY NSTEMI DM2 HTN DYSLIPIDEMIA MEGGAN ON CKD PLAN CONTINUE POC. IVF. IC ABX Plan discussed with: Patient, Other (FAMILY AT BEDSIDE) My Orders Orders - ANALIA PARK MD Procedure Category Date Status Time Sodium Chloride 0.9% PHA 08/23/24 In Process 14:00 Complete Blood Count LAB 08/24/24 Verified 06:00 Comprehensive LAB 08/24/24 Verified Metabolic Panel 06:00 Troponin-I Hs LAB 08/23/24 Logged 16:52 Date of Service: Aug 23, 2024 Billing Provider: ANALIA PARK MD Common Visit Codes: [id number] INP/OBS CARE(HIGH) ANALIA PARK MD Aug 23, 2024 18:46
[2024-08-23] MEDS: ATORVASTATIN 20 MG TAB PO SCH (21:39)
[2024-08-24 01:00] VITALS: BP 108/53; PULSE 59; RESP 17; TEMP 98.9; O2SAT 98
[2024-08-24 05:00] VITALS: BP 121/49; PULSE 68; RESP 19; TEMP 98.5; O2SAT 94
[2024-08-24 05:55] LABS: Basophils # (auto) 0 10 ^3/uL (0-0.2); Basophils % (auto) 0.3 % (0.0-2.0); Eosinophils # (auto) 0.2 10 ^3/uL (0-0.8); Eosinophils % (auto) 1.2 % (0.0-7.0); Hematocrit 31.8 % (36.0-46.0); Hemoglobin 10.7 g/dL (12.2-16.2); Lymphocytes # (auto) 1.9 10 ^3/uL (0.4-5.4); Lymphocytes % (auto) 14.8 % (10.0-50.0); Mean Corpuscular Hemoglobin 32.1 pg (28.0-32.0); Mean Corpuscular Hgb Conc. 33.6 g/dL (32.0-36.0); Mean Corpuscular Volume 95.5 fL (80.0-100.0); Monocytes # (auto) 1.1 10 ^3/uL (0-1.3); Monocytes % (auto) 8.4 % (0.0-12.0); Neutrophils # (auto) 9.5 10 ^3/uL (1.6-8.6); Neutrophils % (auto) 75.3 % (37.0-80.0); Platelet Count (auto) 166 10^3/uL (140-450); Red Blood Cells 3.33 10^6/uL (4.0-5.20); Red Cell Distribution Width 13.2 % (11.8-14.3); White Blood Cell 12.6 10^3/uL (4.4-10.8)
[2024-08-24 06:11] LABS: Alanine Aminotransferase 20 U/L (7-40); Albumin 3.2 g/dL (3.2-4.8); Alkaline Phosphatase 87 U/L (46-116); Anion Gap 6 (5-15); Aspartate Aminotransferase 27 U/L (13-40); Blood Urea Nitrogen 19 mg/dL (9-23); Calcium 9.2 mg/dL (8.7-10.4); Carbon Dioxide 21 mmol/L (20-31); Potassium 3.9 mmol/L (3.5-5.1); Sodium 139 mmol/L (136-145)
[2024-08-24 06:12] LABS: Bilirubin, Total 0.2 mg/dL (0.2-1.0); Chloride 112 mmol/L (98-107); Glucose 153 mg/dL (74-106); Total Protein 5.7 g/dL (5.7-8.2)
--- NOTE | 2024-08-24 07:45 | DVHSR ---
APPROVED REPORT EXAM: Two-dimensional and M-mode echocardiogram with Doppler and color Doppler. Blood Pressure: 99/36 mmHg INDICATION Hypoxia RISK FACTORS Height: 5'2", Weight: 184 DIMENSIONS LVDd3.5 (3.8-5.7cm)LA (2D)3.8 (1.9-4.0cm)Aortic Root2.8 (2.0-3.7cm) LVDs1.9 (2.5-4.0cm)LA (MM) (1.9-4.0cm)Aortic Cusp Exc1.5 (1.5-2.0cm) EF (%) 77.0 (55-70%)Rt. Atrium3.4 (1.9-4.0cm)Asc. Aorta3.4 cm IVSd1.0 (0.7-1.1cm)RV (D)3.3 (1.8-2.4cm) PWd0.6 (0.7-1.1cm) Mitral Valve MitralMitral Stenosis E wave1.12m/sMV Mean GR.mmHg A wave0.97m/sMV Peak GR.mmHg E/A ratio1.22D MVAcm2 DECEL [id number] 1/2 Timems Aortic Valve Aortic ValveAortic Stenosis V11.07m/Moni Mean GR.5mmHg V21.39m/Moni Peak GR.8mmHg LVOT Diameter1.8 (1.8-2.4cm)Doppler AVA1.96cm2 Pulmonic Valve V20.69m/s Tricuspid Valve TR Velocity2.33m/s [id number] LEFT VENTRICLE Normal LV size. Normal wall thickness. Ejection fraction is normal and estimated at 65%. No wall sumaya on abnormalities. There is grade II diastolic dysfunction. E to E' ration is high suggesstive of elev ated left sided filling pressure. RIGHT VENTRICLE Normal size and systolic funciton. ATRIA Left atrium is mildly dilated in size. Right atrium is of normal size. MITRAL VALVE Normal structure and function. No significant mitral regurgitation. PULMONIC VALVE Likely normal. TRICUSPID VALVE Normal structure and function. There is mild tricuspid regurgitation. PA systolic pressure is estim ated at 30-35 mm Hg. AORTIC VALVE Trileaflet in morphology. Leaflets are mildly calcified. No significant stenosis or regurgitation. GREAT VESSELS The aortic root and proximal ascending aorta are of normal size. PERICARDIAL EFFUSION There is no pericardial effusion. IVC is not well visualized. Other Information Quality : Technically LimitedRhythm : Technically limited study due to body habitus. Conclusion Normal left ventricular size and systolic function. No regional wall motion abnormalities. Normal right ventricular size and systolic function. Grade II diastolic dysfunction with evidence of elevated left-sided filling pressure. Calcified aortic valve with no significant stenosis. PA systolic pressure is estimated at 35 mm Hg.
[2024-08-24 08:21] VITALS: BP 153/73; PULSE 74; RESP 20; TEMP 98.5; O2SAT 100
--- NOTE | 2024-08-24 09:55 | ECG ---
[facility] Test Date: 2024-08-23 Test Time: 18:53:06 Pat Name: TJ SCHREIBER Department: Respiratoy Room: 0280 B Gender: F Government Operations Consultant: RESHMA : 1945 Requested By: ANALIA PARK Order Number: [id number] Reading MD: Jamar Almanza Measurements Intervals [place] Rate: 61 P: -6 LA: 137 QRS: 26 QRSD: 93 T: 47 QT: 420 QTc: 423 Interpretive Statements Sinus rhythm Atrial premature complexes Low voltage, precordial leads Electronically Signed On 08-24-2024 10:50:55 PST by Jamar Almanza Please click the below link to view image of tracing.
--- NOTE | 2024-08-24 10:46 | DVHINCON2 ---
Date of service: Aug 24, 2024 History of Present Illness This is a 78-year-old female with past medical history of hypertension, type 2 diabetes mellitus, hyperlipidemia presented to the ED with a chief complaint of bilateral leg pain, cold and chills and intermittent confusion for 2 days prior to this admission. Patient is Kiswahili-speaking and according to the daughter she mentioned bilateral leg pains started yesterday which is associated with cold and chills and also noticed intermittent confusion when she was not able to recognized any familiar faces. The patient denies any fever, shortness of breath, cough, dysuria, hematuria , sick contact or any recent traveling. On admission patient has elevated temperature, tachycardia and lactic acid was high. PCP: Dr. Jaimes Past Medical History Hypertension, type 2 diabetes mellitus, hyperlipidemia Past Surgical History None Family History None Past Social History Lives with Family Nonsmoker, nonalcoholic and never tried any drugs Review of Systems Review of Systems Constitutional: Yes: Chills, Malaise; No: Fever, Sweats, Weakness, Other Eyes: No: Pain, Vision change, Conjunctivae inflammation, Eyelid inflammation, Other, Redness ENT: No: Ear pain, Ear discharge, Nose pain, Nose discharge, Nose congestion, M outh pain, Mouth swelling, Throat pain, Throat swelling, Other Respiratory: No: Cough, Dry, Shortness of breath, SOB with excertion, Wheezing, Hemoptysis, Pleuritic Pain, Sputum, Wheezing, Other Cardiovascular: No: Chest Pain, Palpitations, Orthopnea, Paroxysmal Noc. Dyspnea, Edema, Lt Headedness, Other Gastrointestinal: No: Nausea, Vomiting, Abdominal Pain, Diarrhea, Constipation, Melena, Hematochezia, Other Genitourinary: No Dysuria, No Frequency, No Incontinence, No Hematuria, No Retention, No Other Musculoskeletal: leg pain; No: other, neck pain, shoulder pain, arm pain, back pain, hand pain, foot pain Skin: No: Rash, Lesions, Jaundice, Bruising, Other Neurological: No: Weakness, Numbness, Incoordination, Change in speech, Confu aaron, Seizures, Other Allergies: Coded Allergies: NO KNOWN ALLERGIES (Unverified , 07/28/13) Past Medical History reviewed Family History: FH: cancer G8 BROTHER Family history: Diabetes mellitus G8 BROTHER G8 SISTER Allergies: Coded Allergies: NO KNOWN ALLERGIES (Unverified , 07/28/13) Home Meds Active Scripts Clindamycin Hcl (Clindamycin Hcl) 300 Mg Cap, 1 CAP PO TID for 10 Days, #21 CAP 0 Refills Prov:TIAGO FLOOD 01/14/23 Reported Medications Cholecalciferol (VITAMIN D3) 2,000 Unit Tab, 1 TAB PO DAILY, #30 TAB 5 Refills 02/21/19 Alendronate Sodium (Alendronate Sodium) 70 Mg Tab, 1 TAB PO QWEEKLY, #4 TAB 3 Refills 02/21/19 Acetaminophen (Mapap) 500 Mg Cap, 500 MG PO Q6HR, CAP 02/21/19 Glipizide (Glipizide) 10 Mg Tab, 1 TAB PO DAILY, #60 TAB 5 Refills 02/21/19 Metformin Hydrochloride (Metformin Hcl) 1,000 Mg Tab, 1000 MG PO, TAB 07/28/13 Current Medications Current Medications Medications (Trade) Dose Ordered Sig/Keny Route PRN Reason Start Time Stop Time Status Last Admin Insulin Human Regular (InsuLIN R) HS SC 08/23/24 22:00 08/23/24 21:44 Atorvastatin Calcium (Lipitor) 40 mg HS PO 08/23/24 22:00 08/23/24 21:39 Sodium Chloride 1,000 ml @ 125 mls/hr Q8H IV 08/23/24 14:00 08/24/24 06:01 Review of Systems 10 pt ros otherwise negative Vital Signs Vital Signs Date Time Temp Pulse Resp B/P (MAP) Pulse Ox O2 Delivery O2 Flow Rate FiO2 08/24/24 08:21 98.5 74 20 153/73 (99) 100 98.5 08/23/24 20:00 Nasal Cannula* 2 28 Physical Exam nad s1 s2 rrr ctab soft nt/nd no edema Labs/Diagnostic Data Labs Test 08/24/24 05:12 08/23/24 19:26 08/23/24 11:41 08/23/24 03:20 Range/Units White Blood Count 12.6 #H 4.4-10.8 10^3/uL Red Blood Count 3.33 L 4.0-5.20 10^6/uL Hemoglobin 10.7 L 12.2-16.2 g/dL Hematocrit 31.8 #L 36.0-46.0 % Mean Corpuscular Volume 95.5 80.0-100.0 fL Mean Corpuscular Hemoglobin 32.1 H 28.0-32.0 pg Mean Corpuscular Hemoglobin Concent 33.6 32.0-36.0 g/dL Red Cell Distribution Width 13.2 11.8-14.3 % Platelet Count 166 140-450 10^3/uL Mean Platelet Volume 10.1 6.9-10.8 fL Neutrophils (%) (Auto) 75.3 37.0-80.0 % Lymphocytes (%) (Auto) 14.8 10.0-50.0 % Monocytes (%) (Auto) 8.4 0.0-12.0 % Eosinophils (%) (Auto) 1.2 0.0-7.0 % Basophils (%) (Auto) 0.3 0.0-2.0 % Neutrophils # (Auto) 9.5 H 1.6-8.6 10 ^3/uL Lymphocytes # (Auto) 1.9 0.4-5.4 10 ^3/uL Monocytes # (Auto) 1.1 0-1.3 10 ^3/uL Eosinophils # (Auto) 0.2 0-0.8 10 ^3/uL Basophils # (Auto) 0 0-0.2 10 ^3/uL Nucleated Red Blood Cells 0.0 % Sodium Level 139 136-145 mmol/L Potassium Level 3.9 3.5-5.1 mmol/L Chloride Level 112 H 98-107 mmol/L Carbon Dioxide Level 21 20-31 mmol/L Anion Gap 6 5-15 Blood Urea Nitrogen 19 9-23 mg/dL Creatinine 0.76 0.550-1.02 mg/dL Glomerular Filtration Rate Calc 80 >90 mL/min BUN/Creatinine Ratio 25.0 H 10.0-20.0 Serum Glucose 153 H 74-106 mg/dL Calcium Level 9.2 8.7-10.4 mg/dL Total Bilirubin 0.2 0.2-1.0 mg/dL Aspartate Amino Transferase (AST) 27 13-40 U/L Alanine Aminotransferase (ALT) 20 7-40 U/L Alkaline Phosphatase 87 46-116 U/L Total Protein 5.7 5.7-8.2 g/dL Albumin 3.2 3.2-4.8 g/dL Troponin I High Sensitivity 226 *H </=34 ng/L POC Glucose 138 H 70-106 mg/dl Urine Color Light-yellow Yellow Urine Clarity Turbid H Clear Urine pH 5.5 5.0-9.0 Urine Specific [place] 1.008 1.001-1.035 Urine Protein Trace H Negative Urine Ketones Negative Negative Urine Blood 1+ H Negative /uL Urine Nitrite 2+ H Negative Urine Bilirubin Negative Negative Urine Urobilinogen Normal Negative mg/dL Urine Leukocyte Esterase 3+ Negative /uL Urine RBC 1 0 - 4 /hpf Urine WBC 94 0 - 5 /hpf Urine Squamous Epithelial Cells None seen <5 /hpf Urine Bacteria Few H None Seen /hpf Urine Glucose 3+ H Normal mg/dL Urine Opiates Screen Neg NEGATIVE Urine Fentanyl Screen Neg NEGATIVE Urine Barbiturates Screen Neg NEGATIVE Urine Phencyclidine Screen Neg NEGATIVE Urine Amphetamines Screen Neg NEGATIVE Urine Benzodiazepines Screen Neg NEGATIVE Urine Cocaine Screen Neg NEGATIVE Urine Cannabinoids Screen Neg NEGATIVE Test 08/23/24 00:46 08/22/24 21:03 08/22/24 17:20 08/22/24 17:13 Range/Units Ammonia 18 11-32 umol/L Influenza Type A Antigen Negative Negative Influenza Type B Antigen Negative Negative SARS-CoV-2 Antigen (Rapid) Negative NEGATIVE Hemoglobin A1c 11.6 H <5.7 % A1C B-Type Natriuretic Peptide 87.18 0-100 pg/mL Thyroid Stimulating Hormone (TSH) 1.30 0.55-4.78 uIU/mL Plasma/Serum Blood Alcohol < 3.0 <10 mg/dL Lactic Acid Level 1.8 0.4-2.0 mmol/L Microbiology Date/Time Source Procedure Growth Status 08/22/24 15:25 Blood Blood Culture - Preliminary Resulted Assessment nstemi htn AMS uti pad Plan/Recommendation trop is 2/2 to uti, infection no chest pain echo shows preserved LVEF pt has known severe pad, check arterial US family agrees to plan Plan discussed with: Patient VILLATOROSHARRI MD Aug 24, 2024 10:46
[2024-08-24 12:47] VITALS: BP 142/50; PULSE 55; RESP 18; TEMP 97.5; O2SAT 97
--- NOTE | 2024-08-24 14:30 | DVHPN2 ---
Subjective FEELS much BETTER Reviewed: Care Plan, H&P, Labs, Medications, Previous Orders, Radiology Changes from previous H/P or p: No Changes Objective Vitals Vital Signs Date Time Temp Pulse Resp B/P (MAP) Pulse Ox O2 Delivery O2 Flow Rate FiO2 08/24/24 12:47 97.5 55 18 142/50 (80) 97 97.5 08/24/24 08:00 Nasal Cannula* 2 28 Intake/Output Intake and Output 08/24/24 07:00 Intake Total 3688 ml Output Total 3200 ml Balance 488 ml Intake Oral 3390 ml IV Total 298 ml Output Urine Total 3200 ml # Bowel Movements 1 General Appearance: Alert, Cooperative, No acute distress HEENT: Atraumatic Lungs: Clear to auscultation Cardiovascular: Regular rate Extremities: No edema Medications Current Medications Medications Dose Ordered Sig/Keny Route Start Time Stop Time Status Last Admin Dose Admin Insulin Glargine 15 units QAM SC 08/23/24 07:00 08/24/24 06:10 15 UNITS Diagnostic Test (Pha) 1 strip ACHS 08/23/24 07:00 08/24/24 11:04 1 STRIP Insulin Human Regular HS SC 08/23/24 22:00 08/23/24 21:44 3 UNITS Insulin Human Regular AC SC 08/23/24 07:00 08/24/24 11:14 9 UNITS Dextrose 50 ml UD PRN IV 08/22/24 22:30 Aspirin 81 mg DAILY PO 08/23/24 10:00 08/24/24 10:26 81 MG Atorvastatin Calcium 40 mg HS PO 08/23/24 22:00 08/23/24 21:39 40 MG Famotidine 20 mg DAILY PO 08/23/24 10:00 08/24/24 10:26 20 MG Enoxaparin Sodium 40 mg DAILY SC 08/23/24 10:00 08/24/24 10:25 40 MG Ceftriaxone Sodium 50 ml @ 100 mls/hr DAILY@09 IV 08/23/24 09:00 08/24/24 10:25 100 MLS/HR Sodium Chloride 1,000 ml @ 125 mls/hr Q8H IV 08/23/24 14:00 08/24/24 06:01 125 MLS/HR Laboratory Results Laboratory Tests 08/24/24 05:12 Chemistry Test 08/23/24 15:56 08/24/24 05:12 Calcium Level 8.9 mg/dL (8.7-10.4) 9.2 mg/dL (8.7-10.4) Albumin 3.2 g/dL (3.2-4.8) Total Protein 5.7 g/dL (5.7-8.2) LFT Test 08/24/24 05:12 Alanine Aminotransferase (ALT) 20 U/L (7-40) Alkaline Phosphatase 87 U/L (46-116) Aspartate Amino Transferase (AST) 27 U/L (13-40) Total Bilirubin 0.2 mg/dL (0.2-1.0) Urinalysis Test 08/23/24 03:20 Urine Color Light-yellow (Yellow) Urine Clarity Turbid (Clear) H Urine pH 5.5 (5.0-9.0) Urine Specific [place] 1.008 (1.001-1.035) Urine Protein Trace (Negative) H Urine Ketones Negative (Negative) Urine Blood 1+ /uL (Negative) H Urine Nitrite 2+ (Negative) H Urine Bilirubin Negative (Negative) Urine Urobilinogen Normal mg/dL (Negative) Urine Leukocyte Esterase 3+ /uL (Negative) Urine RBC 1 /hpf (0 - 4) Urine WBC 94 /hpf (0 - 5) Urine Squamous Epithelial Cells None seen /hpf (<5) Urine Bacteria Few /hpf (None Seen) H Urine Glucose 3+ mg/dL (Normal) H Microbiology Microbiology Date/Time Source Procedure Growth Status 08/22/24 15:25 Blood Blood Culture - Preliminary Resulted Assessment/Plan Assessment/Plan ALOC UTI WITH SEPSI/ GNR BACTEREMIA SEPTIC ENCEPHALOPATHY NSTEMI DM2 HTN DYSLIPIDEMIA MEGGAN ON CKD/resolved PLAN Patient continues to improve. Continue current antibiotic. Repeat CBC. Improved kidney function tests/resolved acute kidney injury Plan discussed with: Patient, Other (Family at bedside) My Orders Orders - ANALIA PARK MD Procedure Category Date Status Time Electrocardigram EKG 08/24/24 Resulted 09:48 Date of Service: Aug 24, 2024 Billing Provider: ANALIA PARK MD Common Visit Codes: [id number] INP/OBS CARE(HIGH) ANALIA PARK MD Aug 24, 2024 14:30
--- NOTE | 2024-08-24 16:22 | DVH ---
BILATERAL Lower Extremity Arterial Duplex Date: 08/24/2024 11:52 AM Clinical History: severe pad BL Comparison: None Technique: Duplex Doppler evaluation including color Doppler and spectral/pulsed waveform analysis of the lower extremity arteries was performed. Finding: RIGHT: Peak systolic velocities are as follows: BODY FORMER 94 cm/s Deep femoral 79 cm/s SFA proximal 85 cm/s SFA mid-portion 174 cm/s SFA distal 129 cm/s Popliteal 83 cm/s Posterior tibial : No flow is detected of the mid posterior tibial. Proximal posterior tibial velocit y: 75 cm/s. Distal posterior tibial: 79 cm/S Dorsalis pedis 113 cm/s Monophasic waveform within the right dorsalis pedis artery. Otherwise, biphasic and triphasic wavefo derick throughout right lower extremity arteries. LEFT: Peak systolic velocities are as follows: BODY FORMER 80 cm/s Deep femoral 73 cm/s SFA proximal 105 cm/s SFA mid-portion 118 cm/s SFA distal 181 cm/s Popliteal 70 cm/s Posterior tibial : No flow is detected throughout the posterior tibial artery. Dorsalis pedis 59 cm/s Monophasic waveform within the left dorsalis pedis artery with no flow within the posterior tibial ar deep. Otherwise, biphasic and triphasic waveforms throughout the left lower extremity arteries. IMPRESSION: There is no flow within the left posterior tibial artery and right mid posterior tibial artery. Tameka elate for occlusion. There is about 50% stenosis of the right mid superficial femoral artery based on peak systolic veloci ties. Elevated velocities within the right dorsalis pedis artery which may be from significant atherosclero tic disease with anterior tibial artery not imaged. Monophasic waveforms within the bilateral dorsalis pedis arteries which may be from hemodynamically s ignificant stenosis versus vasodilation. REFERENCE VALUES, [facility] ([facility]) vascular Imaging Lab Criteria: Peak systolic velocity ranges (in cm/sec) are as follows: <150 cm/s - <20 % stenosis 150-200 cm/s - 20-49% stenosis 200-300 cm/s - 50-75% stenosis >300 cm/s -> 75% stenosis
[2024-08-24 17:20] VITALS: BP 147/50; PULSE 55; RESP 17; TEMP 97.6; O2SAT 100
[2024-08-24 21:00] VITALS: BP 135/51; PULSE 56; RESP 18; TEMP 98.3; O2SAT 98
[2024-08-25 01:00] VITALS: BP 132/60; PULSE 54; RESP 16; TEMP 98; O2SAT 98
[2024-08-25 05:00] VITALS: BP 129/59; PULSE 66; RESP 18; TEMP 98.9; O2SAT 94
[2024-08-25 06:30] LABS: Basophils # (auto) 0 10 ^3/uL (0-0.2); Basophils % (auto) 0.5 % (0.0-2.0); Eosinophils # (auto) 0.1 10 ^3/uL (0-0.8); Eosinophils % (auto) 1.4 % (0.0-7.0); Hematocrit 35.6 % (36.0-46.0); Hemoglobin 12.3 g/dL (12.2-16.2); Lymphocytes # (auto) 1.7 10 ^3/uL (0.4-5.4); Lymphocytes % (auto) 21.4 % (10.0-50.0); Mean Corpuscular Hemoglobin 32.4 pg (28.0-32.0); Mean Corpuscular Hgb Conc. 34.5 g/dL (32.0-36.0); Monocytes # (auto) 0.8 10 ^3/uL (0-1.3); Monocytes % (auto) 10.5 % (0.0-12.0); Neutrophils # (auto) 5.1 10 ^3/uL (1.6-8.6); Neutrophils % (auto) 66.2 % (37.0-80.0); Nucleated Red Blood Cells % 0.1 %; Platelet Count (auto) 202 10^3/uL (140-450); Red Blood Cells 3.79 10^6/uL (4.0-5.20); Red Cell Distribution Width 12.8 % (11.8-14.3); White Blood Cell 7.8 10^3/uL (4.4-10.8)
[2024-08-25 09:00] VITALS: BP 131/53; PULSE 62; RESP 18; TEMP 98.3; O2SAT 98
[2024-08-25 13:00] VITALS: BP 127/51; PULSE 54; RESP 18; TEMP 98; O2SAT 96
--- NOTE | 2024-08-25 16:37 | DVHDS2 ---
Discharge Summary Date of Admission Aug 22, 2024 at 20:51 Date of Discharge: Aug 25, 2024 Admitting Diagnosis Altered mental status with urine infection Labs/Diagnostic Data: Laboratory Results Test 08/25/24 06:09 08/24/24 05:12 08/23/24 19:26 08/23/24 11:41 White Blood Count 7.8 10^3/uL (4.4-10.8) Red Blood Count 3.79 10^6/uL (4.0-5.20) Hemoglobin 12.3 g/dL (12.2-16.2) Hematocrit 35.6 % (36.0-46.0) Mean Corpuscular Volume 94.0 fL (80.0-100.0) Mean Corpuscular Hemoglobin 32.4 pg (28.0-32.0) Mean Corpuscular Hemoglobin Concent 34.5 g/dL (32.0-36.0) Red Cell Distribution Width 12.8 % (11.8-14.3) Platelet Count 202 10^3/uL (140-450) Mean Platelet Volume 9.4 fL (6.9-10.8) Neutrophils (%) (Auto) 66.2 % (37.0-80.0) Lymphocytes (%) (Auto) 21.4 % (10.0-50.0) Monocytes (%) (Auto) 10.5 % (0.0-12.0) Eosinophils (%) (Auto) 1.4 % (0.0-7.0) Basophils (%) (Auto) 0.5 % (0.0-2.0) Neutrophils # (Auto) 5.1 10 ^3/uL (1.6-8.6) Lymphocytes # (Auto) 1.7 10 ^3/uL (0.4-5.4) Monocytes # (Auto) 0.8 10 ^3/uL (0-1.3) Eosinophils # (Auto) 0.1 10 ^3/uL (0-0.8) Basophils # (Auto) 0 10 ^3/uL (0-0.2) Nucleated Red Blood Cells 0.1 % Sodium Level 139 mmol/L (136-145) Potassium Level 3.9 mmol/L (3.5-5.1) Chloride Level 112 mmol/L (98-107) Carbon Dioxide Level 21 mmol/L (20-31) Anion Gap 6 (5-15) Blood Urea Nitrogen 19 mg/dL (9-23) Creatinine 0.76 mg/dL (0.550-1.02) Glomerular Filtration Rate Calc 80 mL/min (>90) BUN/Creatinine Ratio 25.0 (10.0-20.0) Serum Glucose 153 mg/dL (74-106) Calcium Level 9.2 mg/dL (8.7-10.4) Total Bilirubin 0.2 mg/dL (0.2-1.0) Aspartate Amino Transferase (AST) 27 U/L (13-40) Alanine Aminotransferase (ALT) 20 U/L (7-40) Alkaline Phosphatase 87 U/L (46-116) Total Protein 5.7 g/dL (5.7-8.2) Albumin 3.2 g/dL (3.2-4.8) Troponin I High Sensitivity 226 ng/L (</=34) POC Glucose 138 mg/dl (70-106) Test 08/23/24 03:20 08/23/24 00:46 08/22/24 21:03 08/22/24 17:20 Urine Color Light-yellow (Yellow) Urine Clarity Turbid (Clear) Urine pH 5.5 (5.0-9.0) Urine Specific [place] 1.008 (1.001-1.035) Urine Protein Trace (Negative) Urine Ketones Negative (Negative) Urine Blood 1+ /uL (Negative) Urine Nitrite 2+ (Negative) Urine Bilirubin Negative (Negative) Urine Urobilinogen Normal mg/dL (Negative) Urine Leukocyte Esterase 3+ /uL (Negative) Urine RBC 1 /hpf (0 - 4) Urine WBC 94 /hpf (0 - 5) Urine Squamous Epithelial Cells None seen /hpf (<5) Urine Bacteria Few /hpf (None Seen) Urine Glucose 3+ mg/dL (Normal) Urine Opiates Screen Neg (NEGATIVE) Urine Fentanyl Screen Neg (NEGATIVE) Urine Barbiturates Screen Neg (NEGATIVE) Urine Phencyclidine Screen Neg (NEGATIVE) Urine Amphetamines Screen Neg (NEGATIVE) Urine Benzodiazepines Screen Neg (NEGATIVE) Urine Cocaine Screen Neg (NEGATIVE) Urine Cannabinoids Screen Neg (NEGATIVE) Ammonia 18 umol/L (11-32) Influenza Type A Antigen Negative (Negative) Influenza Type B Antigen Negative (Negative) SARS-CoV-2 Antigen (Rapid) Negative (NEGATIVE) Hemoglobin A1c 11.6 % A1C (<5.7) B-Type Natriuretic Peptide 87.18 pg/mL (0-100) Thyroid Stimulating Hormone (TSH) 1.30 uIU/mL (0.55-4.78) Plasma/Serum Blood Alcohol < 3.0 mg/dL (<10) Test 08/22/24 17:13 Lactic Acid Level 1.8 mmol/L (0.4-2.0) Other Laboratory Tests 08/25/24 06:09 08/24/24 05:12 Brief Hx & Hospital Course: 78-year-old lady admitted to the hospital because of altered mental status with confusion. Found to have UTI with sepsis. Urine culture done showed E coli. Sensitive to Cipro. Patient condition improved and she went back to normal. Her troponin were slightly elevated. Cardiology consultation obtained. No interventions done and Cardiology attributed the troponin elevation to the infection in the sepsis. Condition at Discharge: Good Final Diagnosis/Problems List UTI with sepsis Septic encephalopathy Non-STEMI Acute kidney injury/resolved/hemodynamically and vasomotor induced Secondary Diagnosis: Peripheral artery disease and bilateral lower extremities/chronic/cc Dr. Sandoval for that. Diabetes type 2 Hypertension Dyslipidemia Chronic kidney disease stage 2 Discharge Disposition: Home Discharge Instruct/Medications Diet: Consistent carbohydrate Activity: Light activity Follow Up/Referral: PCP within one week Dr. Sandoval within one or two weeks Medications: Cipro 500 mg twice a day for seven days. Aspirin 81 mg daily Resume previous home medications 35 Discharge Statement: "Patient was advised to return to the ER or call 911 if any headaches, dizziness, shortness of breath, chest pain, abdominal pain, bleeding, fevers, or worsening of medical condition. Patient was counseled about treatment plan, medications, possible side effects, patientverbalized understanding. All questions were answered to the best of my ability. This discharge took greater then 30 minutes in planning, reviewing documentation, counseling the patient, and discussing with other team members." ASSESSMENT ASSESSMENT Assessment Date of Service: Aug 25, 2024 Billing Provider: ANALIA PARK MD Common Visit Codes: 47602-LZB/OBS DISCH DAY >30min ANALIA PARK MD Aug 25, 2024 16:37
[2024-08-25] MEDS ORDERED: CIPR250T3 PO (16:38)
[2024-08-25] MEDS ORDERED: ASPI-543 PO (16:38)
[2024-08-25 17:04] VITALS: BP 143/70; PULSE 74; RESP 18; TEMP 98.7; O2SAT 97
--- NOTE | 2024-08-28 18:02 | ECG ---
[facility] Test Date: 2024-08-22 Test Time: 15:12:09 Pat Name: TJ SCHREIBER Department: ER Room: 0280 B Gender: F Income Auditor: BETHEL : 1945 Requested By: MARGARITA TAYLOR Order Number: [id number] Reading MD: Jose Ulloa Measurements Intervals Electra Rate: 116 P: 57 KS: 143 QRS: 54 QRSD: 90 T: 35 QT: 332 QTc: 462 Interpretive Statements Sinus tachycardia Low voltage, precordial leads Borderline ST depression, anterolateral leads Electronically Signed On 08-28-2024 18:13:25 PST by Jose Ulloa Please click the below link to view image of tracing.
== END 2024-08-25 19:00 | disposition home or self-care (01) | DRG 720 ==
LOC: ER 14:51 → OVERFLOW 20:51 → WEST WING 21:49
PROVIDERS: ADMIT Internal Medicine; ATTEND Internal Medicine
DX: A41.51 Sepsis due to Escherichia coli [E. coli] (principal); J96.01 Acute respiratory failure with hypoxia; N17.0 Acute kidney failure with tubular necrosis; G93.41 Metabolic encephalopathy; E87.20 Acidosis, unspecified; Z20.822 Contact with and (suspected) exposure to COVID-19; E11.65 Type 2 diabetes mellitus with hyperglycemia; E11.22 Type 2 diabetes mellitus with diabetic chronic kidney disease; N39.0 Urinary tract infection, site not specified; E78.5 Hyperlipidemia, unspecified; I12.9 Hypertensive chronic kidney disease with stage 1 through stage 4 chronic kidney disease, or unspecified chronic kidney disease; E11.51 Type 2 diabetes mellitus with diabetic peripheral angiopathy without gangrene; N18.2 Chronic kidney disease, stage 2 (mild); Z86.718 Personal history of other venous thrombosis and embolism; Z83.3 Family history of diabetes mellitus; I21.4 Non-ST elevation (NSTEMI) myocardial infarction
CPT/HCPCS: 36415; 70450; 71045; 80048; 80053; 80307; 80320; 81001; 82140; 82962; 83036; 83605; 83880; 84443; 84484; 85025; 87040; 87076; 87077; 87086; 87426; 87804; 93005; 93306; 93925; G0378; J1815